=== PATIENT | male | born 1985 | race Caucasian/White ===

== ENCOUNTER → 2017-10-06 | Outpatient (CLI) | payer BC | LOC: COL.LAB 14:03 | PROVIDERS: Family Medicine | DX: R80.3 Bence Jones proteinuria (principal) ==

== ENCOUNTER → 2017-10-17 | Outpatient (CLI) | payer BC | LOC: COL.RAD 07:13 | DX: R16.0 Hepatomegaly, not elsewhere classified (principal); K76.0 Fatty (change of) liver, not elsewhere classified; K43.2 Incisional hernia without obstruction or gangrene ==

== ENCOUNTER → 2017-11-17 | Outpatient (CLI) | payer BC | LOC: COL.RAD 11:44 | DX: R93.422 Abnormal radiologic findings on diagnostic imaging of left kidney (principal); N18.2 Chronic kidney disease, stage 2 (mild); Z96.0 Presence of urogenital implants ==

== ENCOUNTER → 2017-12-11 | Outpatient (CLI) | payer BC ==
[2017-12-11 11:47] LABS: BASO % 0.6 % (0.0-2.0); EOS # 0.2 (0.0-0.7); EOS % 4.3 % (0-4.0); GRAN # 3.5 (1.4-6.5); GRAN % 64.9 % (42.2-75.2); HEMATOCRIT 43.2 % (42.0-52.0); HEMOGLOBIN 14.8 g/dl (13.5-18.0); LYMPH # 1.3 (1.2-3.4); LYMPH % 23.6 % (20.0-51.0); MEAN CELL VOLUME 86 fl (80.0-100.0); MEAN CORPUSCULAR HEMOGLOBIN 29 pg (27.0-31.0); MEAN CORPUSCULAR HGB CONC 34 g/dl (33.0-37.0); MEAN PLATELET VOLUME 10.4 fl (7.4-10.4); MONO # 0.3 (0.1-0.6); MONO % 6.4 % (1.7-9.3); PLATELET COUNT 221 K/mm3 (130-400); RED BLOOD COUNT 5.04 M/mm3 (4.20-5.60); REDCELL DISTRIBUTION WIDTH-CV 12.8 % (11.5-14.5)
[2017-12-11 11:50] LABS: ALBUMIN 3.6 gm/dL (3.5-5.0); CALCIUM 8.8 mg/dL (8.4-10.2); CHOLESTEROL RISK RATIO 6.5; CREATININE, serum 1.16 mg/dL (0.66-1.25); POTASSIUM 4.7 mmol/L (3.4-5.0)
[2017-12-11 12:17] LABS: URINE PROTEIN:CREAT RATIO 4.1 (0.00-0.14)
[2017-12-11 12:22] LABS: HIV 1/2 Antibodies Non-Reactive; HIV-1p24 Antigen Non-Reactive
[2017-12-12 00:47] LABS: COMPLEMENT-C3 156 mg/dL (79-152); COMPLEMENT-C4 33 mg/dL (18-55)
[2017-12-12 03:30] LABS: URINE MICROALBUMIN 189.3 mg/dL (0.0-1.7)
== END ==
LOC: COL.LAB 10:46
PROVIDERS: Internal Medicine
DX: R80.8 Other proteinuria (principal); I12.9 Hypertensive chronic kidney disease with stage 1 through stage 4 chronic kidney disease, or unspecified chronic kidney disease; N18.2 Chronic kidney disease, stage 2 (mild); E66.8 Other obesity